=== PATIENT | female | born 1970 | race Two or more races ===

== ENCOUNTER → 2024-01-22 | Outpatient (CLI) | payer BC, SELFPAY ==
[2024-01-22 09:09] LABS: Cardiac Risk Estimate 4.9 RATIO (3.7-5.6); Cholesterol 273 mg/dL (132-200); HDL Cholesterol 56 mg/dL (40-60); LDL Cholesterol,Calculated 189 mg/dL (0-130); Triglycerides 142 mg/dL (30-150)
== END | disposition home or self-care (01) ==
LOC: COPL 07:17
PROVIDERS: PCP Family Medicine; Referring Provider Nurse Practitioner Family; Visit Provider Nurse Practitioner Family
DX: E78.2 Mixed hyperlipidemia (principal)
CPT/HCPCS: 36415; 80061

== ENCOUNTER → 2024-08-04 | Outpatient (CLI) | payer BC, SELFPAY ==
--- NOTE | 2024-08-04 15:45 | XR_ITS ---
Examination: Screening digital mammography, bilateral Computer aided detection 3-D breast Tomosynthesis, bilateral Date and time of exam: August 04, 2024 1538 hours Compared to mammograms dating to May 08, 2019 Indication: Screening Technique: Nonmagnified MLO, CC views of the breasts to been obtained, reconstructed from 3-D Tomosynthesis images. R2 computer aided detection program utilized for evaluation of suspicious masses and/or abnormal calcifications. 3-D Tomosynthesis images obtained. Findings: Scattered areas of fibroglandular density Benign calcifications. Stable scar formation upper left breast. No interval suspicious masses Impression: BI-RADS category II: Benign Findings. Recommend 1 year follow-up mammogram.
== END | disposition home or self-care (01) ==
LOC: CDIM 15:24
PROVIDERS: Referring Provider Physician Assistant; Visit Provider Physician Assistant
DX: Z12.31 Encounter for screening mammogram for malignant neoplasm of breast (principal); R92.323 Mammographic fibroglandular density, bilateral breasts; R92.1 Mammographic calcification found on diagnostic imaging of breast
CPT/HCPCS: 77063; 77067

== ENCOUNTER → 2024-09-18 | Outpatient (CLI) | payer BC, SELFPAY ==
[2024-09-18 09:08] LABS: Anion Gap 10 (7-16); BUN/Creatinine Ratio 16 Ratio (12-20); Blood Urea Nitrogen 13 mg/dL (9-23); Calcium 9.6 mg/dL (8.3-10.6); Carbon Dioxide 26.8 mMol/L (20.0-31.0); Chloride 106 mMol/L (98-107); Creatinine (Component) 0.8 mg/dL (0.6-1.3); Glucose 90 mg/dL (74-106); Osmolality,Calculated 285 (275-295); Potassium 4.3 mMol/L (3.4-5.1); Sodium 143 mMol/L (136-145); eGFR > 60 See Note
== END | disposition home or self-care (01) ==
LOC: COPL 07:42
PROVIDERS: PCP Nurse Practitioner Family; Referring Provider Nurse Practitioner Family; Visit Provider Nurse Practitioner Family
DX: I10 Essential (primary) hypertension (principal)
CPT/HCPCS: 36415; 80048

== ENCOUNTER 2025-02-17 21:38 | Emergency (ER) | payer BC, SELFPAY ==
[2025-02-17 21:39] VITALS: BMI 25.4
[2025-02-17 22:28] VITALS: BP 156/93; PULSE 91; RESP 18; TEMP 36.7; O2SAT 98
--- NOTE | 2025-02-17 23:03 | PD.EDEPIST ---
ED Epistaxis RME/HPI General Chief complaint: Epistaxis/Nasal Foreign Body Stated complaint: NOSEBLEED Time Seen by Provider: 02/17/25 22:45 Arrival date/time: 02/17/25 21:38 54F with history of HTN and anxiety presents to ED with spontaneous nosebleed. Limitations: no limitations Related Data Previous Rx's ?Medication ?Instructions ?Recorded lorazepam 0.5 mg tablet (Ativan) 0.5 mg PO QDAY PRN anxiety #20 tabs 01/27/18 Allergies Allergy/AdvReac Type Severity Reaction Status Date / Time Sulfa (Sulfonamide Allergy Severe Rash Verified 11/13/22 13:11 Antibiotics) Review of Systems Review of Systems Systems Reviewed: All systems reviewed, normal except as documented ENT Ears, Nose, Mouth, and Throat: Reports as per HPI and Reports epistaxis Past Medical History Past Medical History NEUROLOGIC: Negative Neurological Disorders or Seizures CARDIAC: Positive Cardiac Disorders and Hypertension; Negative Congestive Heart Failure RESPIRATORY: Negative Chronic Obstructive Pulmonary Disease (COPD) GASTROINTESTINAL: Negative Gastrointestinal Disorders GENITOURINARY: Negative Renal Disease REPRODUCTIVE: Positive Breast Cancer (left) and Previous Pregnancies (3) MUSCULOSKELETAL: Positive Musculoskeletal Disorders and Arthritis ENDOCRINE: Negative Endocrine Disorders, Diabetes Mellitus Type 1 or Diabetes Mellitus Type 2 HEMATOLOGIC: Negative Blood Disorders OTHER HISTORY: Positive Anesthesia Reactions (post op nausea), Chemotherapy, Radiation Therapy, Cancer and Breast Cancer (left); Negative Blood Transfusions, Blood Transfusion Reaction, Chicken Pox, Measles or Mumps Family History FAMILY HISTORY: Positive Family Cardiac Disorders (HTN-both parents) and Family Cancer (dad-prostate) Surgical History SURGICAL: Positive Lumpectomy (left breast w/lymphnodes) Social History SMOKING STATUS: Never smoker ED Exam General Limitations: Present no limitations General appearance: Present alert and in no apparent distress Head Head exam: Present atraumatic ENT ENT exam: Present mucous membranes moist Expanded ENT Exam Nasal speculum exam: Bilateral: epistaxis (dried) Neck Neck exam: Present normal inspection, full ROM and trachea midline Chest Chest inspection: Present normal inspection and symmetric chest wall rise Neurological Exam Neurological exam: Present alert and oriented X3 Psychiatric Psychiatric exam: Present normal affect and normal mood Skin Skin exam: Present warm, dry, intact and normal color Course Quality Measures none Orders Category Date Time Status Silver Nitrate Applicators Med 02/17/25 23:51 Discontinued 2 appl TOP X1 ONE Vital Signs Vital signs: Vital Signs Temperature 98.1 F 02/17/25 22:28 Pulse Rate 91 02/17/25 22:28 Respiratory Rate 18 02/17/25 22:28 Blood Pressure 156/93 H 02/17/25 22:28 Pulse Oximetry (%) 98 02/17/25 22:28 Oxygen Delivery Method Room Air 02/17/25 22:28 O2 at 98% on RA and WNLs Epistaxis MDM Narrative MDM Narrative:: 54F with history of HTN and anxiety presents to ED with spontaneous nosebleed. Physical exam reveals dried blood in both nares, but no obvious source of bleeding. Patient is afebrile, calm, and alert. Blood was stopped with compression. Patient wanted preemptive cauterization, so that was done as well. Dehydrator given. Patient data External records reviewed:: [facility] previous records Clinical information provided by:: patient Social determinants that could affect healthcare access:: mental health Patient has the following chronic illnesses:: anxiety and HTN How is presenting disease/condition affected by chronic disease/condition?: exacerbated by Evaluation data The following diagnostics were reviewed and interpreted by me:: other (specify) (none) Lab and/or radiology exams considered but not ordered:: not ordered Interpretation Summary: n/a Medications / Prescriptions Medications or Prescriptions considered but not ordered:: ordered Medication administrations:: Medication Administration History Discontinued Medications Silver Nitrate (Silver Nitrate 1 Appl Ea) 2 appl TOP X1 ONE Stop: 02/17/25 23:52 above Consultations Consultation(s) initiated? (list below): No Diagnosis Epistaxis Differential Diagnosis: nasal bone fracture, anterior epistaxis and posterior epistaxis Most likely diagnosis given after review of the tests above:: epistaxis Admission Indicated Admission indicated?: not indicated Admission Request Was there a request for admission?: No Disposition Plan Disposition Plan: Discharge Discharge Attestation Discharge Attestation: The patient and all family members were given an opportunity to ask questions and understood the discharge instructions. Discharge instructions specifically effects, indications for sooner follow up or return to the emergency department, and the expected course of current diagnosis. Patient condition: Stable Discharge Plan Plan Patient Disposition: HOME (Self Care) Discharge Disposition comment: Stable Prescriptions/Referrals Prescriptions/Med Rec: No Action lorazepam [Ativan] 0.5 mg tablet 0.5 mg PO QDAY PRN (Reason: anxiety) Qty: 20 0RF Problem List Clinical Impression: Epistaxis Patient/Caregiver Discharge Instructions Education Materials: ED Epistaxis (Adult) Additional Instructions: Please follow-up with PCP within 24-48 hours and return immediately if symptoms worsen. Print Language: Occitan Stand Alone Forms: Patient Portal Info Letter PA/REGISTERED MEDICAL TRANSCRIPTIONIST Supervising Physician PA/REGISTERED MEDICAL TRANSCRIPTIONIST Supervising Physician: Dr. Watt
[2025-02-18] MEDS: SILVER NITRATE 1 APPL EA 2 APPL TOP (01:04)
== END 2025-02-18 01:05 | disposition home or self-care (01) ==
LOC: SERX 02-18 01:27
PROVIDERS: Emergency Provider Emergency Medicine
DX: R04.0 Epistaxis (principal)
CPT/HCPCS: 30901; 99281